=== PATIENT | male | born 1955 | race American Indian/Alaskan Native ===

== ENCOUNTER 2016-05-22 20:46 | Emergency (ER) | payer MEDICARE ==
[2016-05-22 22:28] LABS: Basophils % (Auto) 0.5 % (0.0-1.8); Hematocrit 51.2 % (35.5-45.6); Hemoglobin 17.1 gm/dl (11.8-15.2); Mean Corpuscular HGB Conc 34 % (32-34); Mean Corpuscular Hemoglobin 33 pg (28-32); Mean Corpuscular Volume 98 fl (84-94); Platelet Count 234 K/mm3 (140-440); Red Blood Count 5.25 M/mm3 (3.65-5.03); Red Cell Distribution Width 13.7 % (13.2-15.2); White Blood Count 19.5 K/mm3 (4.5-11.0)
[2016-05-22 23:14] LABS: Anion Gap 23 mmol/L; BUN/Creatinine Ratio 18.33; Blood Urea Nitrogen 22 mg/dL (9-20); Calcium 10.7 mg/dL (8.4-10.2); Carbon Dioxide 24 mmol/L (22-30); Chloride 100.9 mmol/L (98-107); Glucose 97 mg/dL (75-100); Potassium 4.4 mmol/L (3.6-5.0); Sodium 143 mmol/L (137-145)
[2016-05-23 03:00] VITALS: BP 133/97
--- NOTE | 2016-05-23 10:02 | XRay Report ---
CHEST X-RAY, 2 VIEWS: HISTORY: Shortness of breath. FINDINGS: No comparison. Mild hyperinflation versus good inspiration. Mild emphysematous changes could be considered. The lungs are clear. Normal heart and mediastinal structures. The thoracic cage is intact. Lower cervical fusion changes are partially imaged. IMPRESSION: Mild hyperinflation. No acute cardiopulmonary process.
--- NOTE | 2016-05-25 18:36 | ED Elopement Review ---
ED Pt Elopement review - Results review Lab results: Laboratory Tests 05/22/16 05/22/16 21:37 21:37 WBC 19.5 H RBC 5.25 H Hgb 17.1 H Hct 51.2 H MCV 98 H MCH 33 H MCHC 34 RDW 13.7 Plt Count 234 Lymph % (Auto) 18.4 [place] % (Auto) 6.3 Eos % (Auto) 1.0 Baso % (Auto) 0.5 Lymph # 3.6 [place] # 1.2 H Eos # 0.2 Baso # 0.1 Seg Neutrophils % 73.8 H Seg Neutrophils # 14.4 H Sodium 143 Potassium 4.4 Chloride 100.9 Carbon Dioxide 24 Anion Gap 23 BUN 22 H Creatinine 1.2 Estimated GFR > 60 BUN/Creatinine Ratio 18.33 Glucose 97 Calcium 10.7 H Troponin T < 0.010 - Call Back decision Pt Call Back Decision: Call pt to return to ED JOHN (chest pain and leukocytosis may require inpatient evaluation)
== END 2016-05-23 03:50 | disposition left against medical advice (07) ==
LOC: ED 20:46
DX: R07.9 Chest pain, unspecified (principal); Z53.21 Procedure and treatment not carried out due to patient leaving prior to being seen by health care provider
CPT/HCPCS: 36415; 71020; 80048; 84484; 85025; 93005; 93010